=== PATIENT | male | born 1965 | race Caucasian/White ===

== ENCOUNTER 2022-03-23 11:34 | Emergency (ER) | payer OTHER ==
[~2022-03-23] VITALS: Ht 182.9 cm; Wt 129.3 kg
[2022-03-23] MEDS ORDERED: CYCLOBENZAPRINE HCL 10 MG TABLET PO ONE (13:15)
[2022-03-23] MEDS ORDERED: KETOROLAC TROMETHAMINE 15 MG INJ IM ONE (13:15)
--- NOTE | 2022-03-23 13:18 | NUR ---
Pt still having back pain, 12/06, informed
[2022-03-23] MEDS ORDERED: PIPERACILLIN/TAZOBACTAM/D5W 50 ML IV ONE (13:29)
[2022-03-23] MEDS ORDERED: KETOROLAC TROMETHAMINE 15 MG INJ ONE (13:51)
[2022-03-23] MEDS ORDERED: CYCLOBENZAPRINE HCL 10 MG TABLET ONE (13:51)
[2022-03-23] MEDS ORDERED: NAPR-1009 PO (14:45)
[2022-03-23] MEDS ORDERED: CYCL5TAB PO (14:45)
--- NOTE | 2022-03-23 14:50 | NUR ---
Gave pt's daughter RX and d/c instructions, verbalized understanding. Advised pt not to drive.
== END 2022-03-23 14:53 | disposition home or self-care (01) ==
LOC: ER 11:38
DX: S39.012A Strain of muscle, fascia and tendon of lower back, initial encounter (principal); S16.1XXA Strain of muscle, fascia and tendon at neck level, initial encounter; V49.60XA Unspecified car occupant injured in collision with unspecified motor vehicles in traffic accident, initial encounter; Y92.410 Unspecified street and highway as the place of occurrence of the external cause; E10.9 Type 1 diabetes mellitus without complications; E78.00 Pure hypercholesterolemia, unspecified; M25.562 Pain in left knee; M25.561 Pain in right knee
CPT/HCPCS: 99285; 70450; 73564 ×2; 72125; 72131; 96372; J1885; A4663; J2543

== ENCOUNTER 2023-06-15 19:47 | Emergency (ER) | payer OTHER ==
[~2023-06-15] VITALS: Ht 185.4 cm; Wt 127.0 kg
[~2023-06-15 19:47] MED LIST: CYCL5TAB PO; NAPR-1009 PO
[2023-06-15 20:30] LABS: BASOPHILS # (AUTO) 0.2 K/UL (0.0-0.2); BASOPHILS % (AUTO) 3.3 % (0.0-2.0); EOSINOPHILS # (AUTO) 0.1 K/uL (0.0-0.7); HEMATOCRIT 34.9 % (36.7-47.1); HEMOGLOBIN 11.7 g/dL (12.5-16.3); LYMPHOCYTES # (AUTO) 1.2 K/uL (0.8-4.8); LYMPHOCYTES % (AUTO) 18.6 % (20.5-51.5); MEAN CORPUSCULAR HEMOGLOBIN 27.1 uug (23.8-33.4); MEAN CORPUSCULAR HGB CONC 33 g/dL (32.5-36.3); MEAN CORPUSCULAR VOLUME 81.2 fL (73.0-96.2); MONOCYTES # (AUTO) 0.5 K/uL (0.1-1.30); MONOCYTES % (AUTO) 7.5 % (0.0-11.0); NEUTROPHILS # (AUTO) 4.4 K/uL (1.8-8.9); NEUTROPHILS % (AUTO) 68.6 % (38.5-71.5); PLATELET COUNT (AUTO) 200 K/uL (152-348); RED CELL DISTRIBUTION WIDTH 15.8 % (12.1-16.2); WHITE BLOOD COUNT (AUTO) 6.4 K/uL (3.6-10.2)
[2023-06-15 20:35] LABS: CALCIUM 8.9 mg/dL (8.5-10.1); CARBON DIOXIDE 27 mmol/L (21-32); CHLORIDE 107 mmol/L (98-107); CREATININE 0.8 mg/dL (0.6-1.3); DIFFERENTIAL COMMENT 1; GLUCOSE 109 mg/dL (74-106); SODIUM SERUM 142 mmol/L (136-145); UREA NITROGEN, BLOOD 20 mg/dL (7-18)
[2023-06-15] MEDS ORDERED: CLOP75TA15 PO (20:44)
[2023-06-15] MEDS ORDERED: DAPA10TA PO (20:44)
[2023-06-15] MEDS ORDERED: INSU100C4 SUBCUT (20:44)
[2023-06-15] MEDS ORDERED: ATOR80TA PO (20:44)
[2023-06-15] MEDS ORDERED: GABA-532 PO (20:44)
[2023-06-15] MEDS ORDERED: PANT40TA49 PO (20:44)
[2023-06-15] MEDS ORDERED: INSU300I SQ (20:44)
[2023-06-15] MEDS ORDERED: CHOL500062 PO (20:44)
[2023-06-15] MEDS ORDERED: METO-356 PO (20:44)
[2023-06-15] MEDS ORDERED: METF-440 PO (20:44)
[2023-06-15] MEDS ORDERED: SENN-261 PO (20:44)
[2023-06-15 20:48] LABS: ALANINE AMINOTRANSFERASE 15 U/L (16-63); ALBUMIN 3.4 g/dL (3.4-5.0); ALKALINE PHOSPHATASE 60 U/L (50-136); ASPARTATE AMINOTRANSFERASE 11 U/L (15-37); BILIRUBIN,DIRECT 0.1 mg/dL (0.0-0.2); BILIRUBIN,TOTAL 0.4 mg/dL (0.2-1.0); NT-PRO BNP 902 pg/mL (0-125)
[2023-06-15 22:12] VITALS: O2SAT 98
[2023-06-15] MEDS ORDERED: METOCLOPRAMIDE HCL 10 MG TABLET PO ONE (23:00)
[2023-06-15] MEDS ORDERED: ACETAMINOPHEN ES 500 MG TABLET PO ONE (23:00)
[2023-06-15] MEDS ORDERED: LIDOCAINE HCL 1% 20 ML VIAL ONE (23:32)
== END 2023-06-15 23:48 | disposition short-term general hospital (02) ==
LOC: ER 19:48
DX: I50.9 Heart failure, unspecified (principal); R06.02 Shortness of breath; E78.00 Pure hypercholesterolemia, unspecified; E10.9 Type 1 diabetes mellitus without complications; Z98.890 Other specified postprocedural states; Z79.899 Other long term (current) drug therapy
CPT/HCPCS: 99285; 71045; 80076; 80048; 83880; 85025; 85730; 84484; 36415; 93005; J3490; A4606; A4663